=== PATIENT | female | born 1975 | race Caucasian/White ===

== ENCOUNTER → 2017-02-17 | Outpatient (CLI) | payer MEDICAID ==
[~2017-02-17] MED LIST: ABILIFY10 MG; CEPHALEXIN500 M1 PO; GLYBURIDE 5MG TA5 MG OR; GLYBURIDE2.5 MG OR; IBUPROFEN400 MG PO; IMITREX 25MG TA25 MG PO; MEDROXYPROGESTE10 M1 PO; NOMEDS XX; PERCOCET 5/3251 EACH PO; PHENERGAN 25MG.25 M1 PO; PREDNISONE 10MG10 MG PO; PRENATAL PLUS1 TA1 OR; ZANTAC 150150 MG OR
--- NOTE | 2017-02-18 14:22 | RADIOLOGY REPORT PS360 ---
MRI-BRAIN W/O Ordering Physician: Marla Yanez [employer] Patient Age: 41 years: Female HISTORY: NUMBNESS AROUND MOUTH, NUMBNESS IN BOTH HANDS Intermittent numbness in face, and bilateral hands. Sharp pains occipital out of head. Intermittent headache TECHNIQUE: Noncontrast Multiplanar FLAIR, T1, T2 weighted images along with axial diffusion/ADC imaging performed on 1.5 T. Siemens, MRI. COMPARISON. CT head without contrast 10/02/2011 FINDINGS : No acute findings No acute infarct or ischemia on diffusion images. No territorial infarct. No mass lesion evident. No subdural or extra-axial collection. Normal anatomy . Normal cranial cervical junction. Pituitary & sella unremarkableVentricles and basal cisterns appear satisfactory. Orbits and paranasal sinuses appear satisfactory. Optic tracts optic chiasm region unremarkable. Deviation nasal septum convexity to the right incidentally noted. Scalp and skull intact. Posterior fossa appears satisfactory. CP angles clear. IACs symmetric with satisfactory appearance. Slight increased signal throughout majority left mastoid air cells this may reflect a incidental mastoid effusion on left... This is seen on previous CT head 22 09, and basically stable. Middle ear appears clear bilateral with no appreciable fluid.. T --- Today's sensitive FLAIR and T2 weighted image sequences demonstrate few small scattered nonspecific high signal deep white matter high signal foci at cerebral hemispheres bilaterally. None measuring over 3-4 mm size. These are very subtle, nonspecific & require correlation.. In this younger patient younger high signal foci can be seen with history of migraine headaches or setting of early vascular disease changes, even in this age. Is there history of vasculitis hypertension, smoking,, etc.However at this younger age demyelinating disease would also be included in the differential from imaging perspective. These tiny suspect high signal foci detailed below: Left Cerebral Hemisphere.:.A 4 mm high signal focus lateral to anterior horn left lateral ventricle most evident & seen on axial image 13. Small deep white matter focus seen left frontal region axial image 14/coronal slice 7. . Question vague High signal focus at Inferior left basal ganglia on coronal FLAIR image 10; with small questionable area superior to the sylvian fissure on coronal slice 15. Also questionable small focus far superior deep white matter mid cerebral hemisphere on coronal slice 13. Tiny 3 mm high signal focus posterior left cerebral hemisphere coronal slice 19 ] Right cerebral Hemisphere. Small high signal focus at the periphery of the white matter of frontal lobe coronal slice/10 . Small question possible high signal focus anteriorly right frontal lobe coronal slice 14 of the latter areas could reflect volume averaging IMPRESSION: No acute intracranial findings No mass lesions. No subdural collection No territorial infarct. Normal anatomy. No prominent findings .. Suggestion of a few tiny high signal deep white matter foci at cerebral hemispheres bilateral. Nonspecific. Some these could be related to volume averaging from adjacent recio matter but there do appear to be a few convincing tiny high signal foci at cerebral hemispheres bilateral. Considerations are discussed in text. Require correlation Modest left mastoid effusion noted likely stable since 2010 CT head. Left middle ear and left mastoid antrum clear
== END ==
LOC: RAD 08:00
DX: R20.2 Paresthesia of skin (principal); R51 Headache

== ENCOUNTER → 2017-10-02 | Outpatient (CLI) | payer MEDICAID ==
[2017-10-02 18:47] LABS: BUN 8 mg/dL (7-18)
[2017-10-02 18:48] LABS: GFR (ESTIMATED) 92 ML/MIN (59-)
[2017-10-04 07:38] LABS: HBsAg Screen Negative (Negative); Hep A Ab, IgM Negative (Negative); Hep B Core Ab, IgM Negative (Negative); Hep C Virus Ab 0.1 (0.0-0.9)
== END ==
LOC: LAB 17:19
PROVIDERS: Nurse Practitioner Family
DX: Z20.5 Contact with and (suspected) exposure to viral hepatitis (principal)